=== PATIENT | female | born 1990 | race Caucasian/White ===

== ENCOUNTER 2017-06-02 19:05 | Emergency (ER) | payer OTHER, BC ==
[~2017-06-02] VITALS: Ht 154.9 cm; Wt 99.8 kg
[2017-06-02] MEDS ORDERED: ONDANSETRON 4 MG/2 ML VIAL IV ONE (19:45)
[2017-06-02] MEDS ORDERED: IV NORMAL SALINE 1000 ML BAG IV ONE (19:45)
[2017-06-02 20:05] LABS: BASOPHILS # (AUTO) 0.1 K/uL (0.0-8.0); EOSINOPHILS # (AUTO) 0.4 K/uL (0.0-0.7); EOSINOPHILS % (AUTO) 3.5 % (0.0-7.0); HEMATOCRIT 47.5 % (37-47); HEMOGLOBIN 16.2 G/DL (12.0-16.0); LYMPHOCYTES # (AUTO) 2.5 K/UL (0.8-4.8); MEAN CORPUSCULAR HEMOGLOBIN 30.6 UUG (27.0-31.0); MEAN CORPUSCULAR HGB CONC 34 g/dL (32.0-37.0); MONOCYTES # (AUTO) 0.7 K/UL (0.1-1.30); MONOCYTES % (AUTO) 6.6 % (0.0-11.0); NEUTROPHILS # (AUTO) 6.6 K/UL (1.8-8.9); NEUTROPHILS % (AUTO) 64.9 % (38.5-71.5); PLATELET COUNT (AUTO) 413 K/UL (150-450); RED BLOOD CELL COUNT(AUTO) 5.28 MIL/UL (4.2-5.4); WHITE BLOOD COUNT (AUTO) 10.3 K/UL (4.0-11.2)
[2017-06-02] MEDS ORDERED: ONDANSETRON 4 MG/2 ML VIAL ONE (20:11)
[2017-06-02 20:12] LABS: CREATININE 0.9 mg/dL (0.6-1.3); POTASSIUM 3.5 mmol/L (3.5-5.1)
--- NOTE | 2017-06-02 20:48 | NUR ---
Patient discharged to home in stable conditon. Written and verbal after care instructions given. Patient verbalizes understanding of instructions.
== END 2017-06-02 20:53 | disposition home or self-care (01) ==
LOC: ER 19:06
DX: R55 Syncope and collapse (principal); E66.9 Obesity, unspecified; Z59.0 Homelessness; F17.200 Nicotine dependence, unspecified, uncomplicated
CPT/HCPCS: 36415; 84703; 85025; 93005; A4663; J2405; J7030

== ENCOUNTER 2017-06-06 21:32 | Emergency (ER) | payer BC, OTHER ==
[~2017-06-06] VITALS: Ht 154.9 cm; Wt 99.8 kg
[2017-06-06] MEDS ORDERED: ONDANSETRON ODT 4 MG TAB.RAPDIS SL ONE (22:00)
[2017-06-06] MEDS ORDERED: HYDROCODONE/APAP 10-325 MG TABLET PO ONE (22:00)
--- NOTE | 2017-06-06 22:08 | NUR ---
Patient discharged to home in stable conditon. Written and verbal after care instructions given. Patient verbalizes understanding of instructions.
[2017-06-06] MEDS ORDERED: ONDANSETRON ODT 4 MG TAB.RAPDIS ONE (22:18)
[2017-06-06] MEDS ORDERED: HYDROCODONE/APAP 10-325 MG TABLET ONE (22:19)
== END 2017-06-06 22:09 | disposition home or self-care (01) ==
LOC: ER 21:32
DX: R51 Headache (principal); Z59.0 Homelessness; F17.200 Nicotine dependence, unspecified, uncomplicated; F32.9 Major depressive disorder, single episode, unspecified
CPT/HCPCS: A4663; Q0162

== ENCOUNTER 2017-08-18 04:16 | Emergency (ER) | payer BC ==
[~2017-08-18] VITALS: Ht 154.9 cm; Wt 97.5 kg
[2017-08-18] MEDS ORDERED: OXYCODONE/APAP 5-325 MG TABLET PO ONE (05:00)
[2017-08-18] MEDS ORDERED: OXYCODONE/APAP 5-325 MG TABLET ONE (05:13)
--- NOTE | 2017-08-18 06:21 | NUR ---
Patient discharged to home in stable conditon. Written and verbal after care instructions given. Patient verbalizes understanding of instructions. Ambulated from ER with stable gait, patient using crutches. Gait training is complete. Fair balance noted. All belongings with patient.
[2017-08-18 06:25] VITALS: BP 132/85
== END 2017-08-18 06:26 | disposition home or self-care (01) ==
LOC: ER 04:21
DX: S93.601A Unspecified sprain of right foot, initial encounter (principal); Z59.0 Homelessness; Z71.6 Tobacco abuse counseling; F17.200 Nicotine dependence, unspecified, uncomplicated; X50.1XXA Overexertion from prolonged static or awkward postures, initial encounter; Y93.89 Activity, other specified; Y92.89 Other specified places as the place of occurrence of the external cause; Y99.8 Other external cause status
CPT/HCPCS: 73630; 73700; A4663